=== PATIENT | male | born 1960 | race Caucasian/White ===

== ENCOUNTER 2016-10-03 06:04 | Inpatient (IN) | payer MEDICARE, MEDICAID ==
[2016-10-03] MEDS ORDERED: Codeine/guaiFENesin 100-10 MG/5 ML Syrup 5 ML Cup PO ONE (07:15)
[2016-10-03] MEDS ORDERED: Albuterol/Ipratropium 3.0-0.5 MG/3 ML Neb Soln NEB PRN (07:33)
[2016-10-03] MEDS ORDERED: Magnesium Hydroxide 400 MG/5 ML Susp 30 ML Cup PO PRN (07:33)
[2016-10-03] MEDS ORDERED: Sodium Chloride 0.9% 1,000 ML IV ONE (07:44)
[2016-10-03] MEDS ORDERED: Codeine/guaiFENesin 100-10 MG/5 ML Syrup 5 ML Cup PO PRN (07:50)
[2016-10-03] MEDS ORDERED: Acetaminophen Soln 650 MG/20.3 ML UD Cup PO PRN (07:58)
[2016-10-03] MEDS ORDERED: Sodium Chloride 0.9% 1,000 ML IV SCH ×2 (09:00→09:30)
--- NOTE | 2016-10-03 09:29 | PCM.HP ---
H&P History of Present Illness - General Date of Service: 10/03/16 Admit Problem/Dx: Admission Diagnosis/Problem Admission Diagnosis/Problem Cough History Limitations: Reports: No limitations - History of Present Illness Initial Comments - Free Text/Narative: This history is obtained from the patient and his . Mr. Arceo is 56 years old, he has a resting disease for several years, and chronic joint pain and fusion. He came in because of a cough that he's had for 3 weeks, dry but sometimes productive of blood tinged sputum. He denies any fever associated with it. Neither does he have shortness of breath. Because of the skin disease and joint disease, he is bedridden and has developed bed sores in the shoulder blades and buttock. This has been causing significant pain and discomfort. He is able to ambulate only with assistance but mostly lives in a wheelchair. His appetite has been decreasing slowly. His mostly helps him with dressing feeding and toileting as well. He denies any recent fever, chills or vomiting. Over the telephone he was started on Omnicef for possible cellulitis. Generalized Pain Score (Numeric/FACES): 5 - Related Data Allergies/Adverse Reactions: Allergies Allergy/AdvReac Type Severity Reaction Status Date / Time Penicillins Allergy Diarrhea Verified 10/03/16 06:23 Home Medications: Home Meds Acitretin 25 mg PO DAILY 10/03/16 [History] Cefdinir [Omnicef 250 MG/5 ML Susp] 1 tsp PO BID 10/03/16 [History] Clotrimazole/Betamethasone Dip [Lotrisone Cream] 45 gm TP BID PRN 10/03/16 [ History] Mupirocin Cream [Bactroban Crm] 30 gm TP BID PRN 10/03/16 [History] Valsartan/Hydrochlorothiazide [Valsartan-Hctz 160-12.5 mg Tab] 1 tab PO DAILY [History] Past Medical History HEENT History: Reports: Cataract, Impaired vision Gastrointestinal History: Reports: Hemorrhoids Musculoskeletal History: Reports: Other (see below) Other Musculoskeletal History: 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 - Infectious Disease History Infectious Disease History: Reports: Chicken pox - Past Surgical History Musculoskeletal Surgical History: Reports: Hip replacement, Other (see below) Other Musculoskeletal Surgeries/Procedures:: left Social & Family History - Family History Family Medical History: Noncontributory - Tobacco Use Smoking Status *Q: Never Smoker Years of Tobacco use: 8 Second Hand Smoke Exposure: No - Caffeine Use Caffeine Use: Reports: Tea - Recreational Drug Use Recreational Drug Use: No H&P Review of Systems - Review of Systems: Review Of Systems: ROS reveals no pertinent complaints other than HPI. Exam - Exam Exam: See Below - Vital Signs Vital Signs: Last Vital Signs Temp 97.8 F 10/03/16 07:50 Pulse 83 10/03/16 07:50 Resp 20 10/03/16 07:50 BP 162/88 H 10/03/16 07:50 Pulse Ox 94 L 10/03/16 07:50 Weight: 66.134 kg - Exam General: alert, oriented, 4 HEENT: PERRLA, Hearing intact, Mucosa moist & pink, Nares patent, Normal nasal septum, Posterior pharynx clear, Conjunctiva clear, EOMI, EACs clear, TMs clear Neck: supple, trachea midline, 2 Lungs: Clear to auscultation, Normal respiratory effort Cardiovascular: regular rate, regular rhythm Abdomen: normal bowel sounds, soft (Male) Exam: Circumcised, Rash Rectal (Males) Exam: Deferred Back Exam: decreased range of motion. No: full range of motion Extremities: No: clubbing, edema Skin: warm, rash, other (He has several areas of excoriation, peeling of skin particularly in the shoulder blades bilaterally, and these sacral area. The dermis is involved, and the measure about the palm size of the palm of my hand. In addition he has several crystals in his upper chest and trunk area and hyperkeratinization and scaly areas widespread probably to his chronic skin disease.) Neurological: cranial nerves intact, reflexes equal bilateral Neuro Extensive - Mental Status: alert, oriented x3, normal mood/affect, normal cognition Neuro Extensive - Motor, Sensory, Reflexes: CN II-XII intact, normal gait, normal reflexes Psychiatric: depressed. No: labile mood, suicidal ideation, hallucinations - Patient Data Lab Results last 24 hrs: Laboratory Results - last 24 hr 10/03/16 10/03/16 10/03/16 Range/Units 07:45 07:45 07:45 WBC 15.3 H (4.5-12.0) X10-3/uL RBC 2.73 L (4.30-5.75) x10(6)uL Hgb 8.6 L (11.5-15.5) g/dL Hct 25.5 L (30.0-51.3) % MCV 93.6 (80-96) fL MCH 31.5 (27.7-33.6) pg MCHC 33.7 (32.2-35.4) g/dL RDW 13.4 (11.5-15.5) % Plt Count 650 H (125-369) X10(3)uL MPV 7.6 (7.4-10.4) fL Add Manual Diff Yes Neutrophils % (Manual) 80 (46-82) % Band Neutrophils % 1 (0-6) % Lymphocytes % (Manual) 11 L (13-37) % Monocytes % (Manual) 6 (4-12) % Eosinophils % (Manual) 2 (0-5) % PT 12.2 H (8.7-11.1) INR 1.21 H (0.89-1.13) D-Dimer, Quantitative (100-400) ng/mL Sodium (135-145) mmol/L Potassium (3.5-5.3) mmol/L Chloride (100-110) mmol/L Carbon Dioxide (23-29) mmol/L BUN (5-20) mg/dL Creatinine (0.6-1.3) mg/dL Est Cr Clr Drug Dosing mL/min Estimated GFR (MDRD) (>60) BUN/Creatinine Ratio (9-20) Glucose (80-116) mg/dL Calcium (8.6-10.2) mg/dL Phosphorus (3.0-4.6) mg/dL Magnesium (1.8-2.5) mg/dL Total Bilirubin (0.1-1.3) mg/dL AST (5-27) IU/L ALT (14-26) IU/L Alkaline Phosphatase (56-112) IU/L Creatine Kinase (60-160) IU/L Troponin I (0.02-0.06) NG/ML C-Reactive Protein (0.0-1.0) mg/dL B-Natriuretic Peptide (0-100) pg/mL Total Protein (6.0-8.0) g/dL Albumin (3.5-5.2) g/dL Globulin g/dL Albumin/Globulin Ratio TSH, Ultra Sensitive 3.16 (0.4-5.5) nlU/mL 10/03/16 10/03/16 10/03/16 Range/Units 07:45 07:45 07:45 WBC (4.5-12.0) X10-3/uL RBC (4.30-5.75) x10(6)uL Hgb (11.5-15.5) g/dL Hct (30.0-51.3) % MCV (80-96) fL MCH (27.7-33.6) pg MCHC (32.2-35.4) g/dL RDW (11.5-15.5) % Plt Count (125-369) X10(3)uL MPV (7.4-10.4) fL Add Manual Diff Neutrophils % (Manual) (46-82) % Band Neutrophils % (0-6) % Lymphocytes % (Manual) (13-37) % Monocytes % (Manual) (4-12) % Eosinophils % (Manual) (0-5) % PT (8.7-11.1) INR (0.89-1.13) D-Dimer, Quantitative (100-400) ng/mL Sodium 133 L (135-145) mmol/L Potassium 3.6 (3.5-5.3) mmol/L Chloride 99 L (100-110) mmol/L Carbon Dioxide 22 L (23-29) mmol/L BUN 12 (5-20) mg/dL Creatinine 0.9 (0.6-1.3) mg/dL Est Cr Clr Drug Dosing 84.24 mL/min Estimated GFR (MDRD) > 60 (>60) BUN/Creatinine Ratio 13.3 (9-20) Glucose 115 (80-116) mg/dL Calcium 8.6 (8.6-10.2) mg/dL Phosphorus 3.9 (3.0-4.6) mg/dL Magnesium 1.9 (1.8-2.5) mg/dL Total Bilirubin 0.7 (0.1-1.3) mg/dL AST 25 (5-27) IU/L ALT 14 (14-26) IU/L Alkaline Phosphatase 68 (56-112) IU/L Creatine Kinase 105 (60-160) IU/L Troponin I (0.02-0.06) NG/ML C-Reactive Protein 12.4 H* (0.0-1.0) mg/dL B-Natriuretic Peptide (0-100) pg/mL Total Protein 7.7 (6.0-8.0) g/dL Albumin 2.9 L (3.5-5.2) g/dL Globulin 4.8 g/dL Albumin/Globulin Ratio 0.6 TSH, Ultra Sensitive (0.4-5.5) nlU/mL 10/03/16 10/03/16 10/03/16 Range/Units 07:45 07:45 07:45 WBC (4.5-12.0) X10-3/uL RBC (4.30-5.75) x10(6)uL Hgb (11.5-15.5) g/dL Hct (30.0-51.3) % MCV (80-96) fL MCH (27.7-33.6) pg MCHC (32.2-35.4) g/dL RDW (11.5-15.5) % Plt Count (125-369) X10(3)uL MPV (7.4-10.4) fL Add Manual Diff Neutrophils % (Manual) (46-82) % Band Neutrophils % (0-6) % Lymphocytes % (Manual) (13-37) % Monocytes % (Manual) (4-12) % Eosinophils % (Manual) (0-5) % PT (8.7-11.1) INR (0.89-1.13) D-Dimer, Quantitative > 5000 H (100-400) ng/mL Sodium (135-145) mmol/L Potassium (3.5-5.3) mmol/L Chloride (100-110) mmol/L Carbon Dioxide (23-29) mmol/L BUN (5-20) mg/dL Creatinine (0.6-1.3) mg/dL Est Cr Clr Drug Dosing mL/min Estimated GFR (MDRD) (>60) BUN/Creatinine Ratio (9-20) Glucose (80-116) mg/dL Calcium (8.6-10.2) mg/dL Phosphorus (3.0-4.6) mg/dL Magnesium (1.8-2.5) mg/dL Total Bilirubin (0.1-1.3) mg/dL AST (5-27) IU/L ALT (14-26) IU/L Alkaline Phosphatase (56-112) IU/L Creatine Kinase (60-160) IU/L Troponin I < 0.01 L (0.02-0.06) NG/ML C-Reactive Protein (0.0-1.0) mg/dL B-Natriuretic Peptide 61 (0-100) pg/mL Total Protein (6.0-8.0) g/dL Albumin (3.5-5.2) g/dL Globulin g/dL Albumin/Globulin Ratio TSH, Ultra Sensitive (0.4-5.5) nlU/mL Result Diagrams: 10/03/16 07:45 10/03/16 07:45 *Q Meaningful Use (ADM) - VTE *Q VTE Criteria *Q: - Stroke *Q Stroke Criteria *Q: - AMI *Q AMI Criteria *Q: - Problem List (1) Decubitus skin ulcer SNOMED Code(s): 504966270 ICD Code: L89.90 - PRESSURE ULCER OF UNSPECIFIED SITE, UNSPECIFIED STAGE Status: Acute Current Visit: Yes Qualifiers: Pressure ulcer location: sacral region Pressure ulcer stage: stage 2 Qualified Code(s): L89.152 - Pressure ulcer of sacral region, stage 2 (2) Hemoptysis SNOMED Code(s): 71168326 ICD Code: R04.2 - HEMOPTYSIS Status: Acute Current Visit: Yes (3) HTN (hypertension) SNOMED Code(s): 29955140 ICD Code: I10 - ESSENTIAL (PRIMARY) HYPERTENSION Status: Chronic Current Visit: Yes Qualifiers: Hypertension type: essential hypertension Qualified Code(s): I10 - Essential (primary) hypertension (4) Darier disease SNOMED Code(s): 554702372, 137761466 ICD Code: Q82.8 - OTHER SPECIFIED CONGENITAL MALFORMATIONS OF SKIN Status: Acute Current Visit: Yes (5) Physical deconditioning SNOMED Code(s): 38428868566533 ICD Code: R53.81 - OTHER MALAISE Status: Acute Current Visit: Yes Problem List Initiated/Reviewed/Updated: Yes Orders Last 24hrs: Active Orders 24 hr Category Date Time Status OT Evaluation and Treatment [CONS] Routine Cons 10/03/16 09:28 Ordered PT Evaluation and Treatment [CONS] Routine Cons 10/03/16 09:28 Ordered Chest 2V [CR] Routine Exams 10/03/16 08:16 Stop Req Chest w Cont [CT] Routine Exams 10/03/16 09:27 Ordered Acetaminophen [Tylenol] Med 10/03/16 07:58 Active 480 mg PO Q4H PRN Codeine/guaiFENesin [Robitussin AC] Med 10/03/16 07:50 Active 5 ml PO Q4H PRN Sodium Chloride 0.9% @ 125 MLS/HR (1000ml) Med 10/03/16 09:30 Ordered Sodium Chloride 0.9% [Normal Saline] 1,000 ml IV ASDIRECTED Sodium Chloride 0.9% [Normal Saline] 1,000 ml Med 10/03/16 09:00 Active IV ASDIRECTED cefTRIAXone [Rocephin] Med 10/03/16 09:30 Ordered 1,000 mg IVPUSH Q24H Medication Orders Acetaminophen (Tylenol) 480 mg PO Q4H PRN PRN Reason: Pain Albuterol/Ipratropium (Duoneb 3.0-0.5 Mg/3 Ml) 3 ml NEB QID PRN PRN Reason: Shortness Of Breath/wheezing Guaifenesin/Codeine Phosphate (Robitussin Ac) 5 ml PO Q4H PRN PRN Reason: Cough Sodium Chloride (Normal Saline) 1,000 mls @ 150 mls/hr IV ASDIRECTED KATIE Sodium Chloride (Normal Saline) 1,000 mls @ 125 mls/hr IV ASDIRECTED KATIE Magnesium Hydroxide (Milk Of Magnesia) 30 ml PO Q12H PRN PRN Reason: Constipation Assessment/Plan Comment:: We'll admit the patient. I will start Rocephin to cover for any skin infection from Darier's disease. In addition obtain a CT of the chest given his high d- dimer to rule out any PE as a cause for his hemoptysis. I have recommended frequent position changes, Aquacel for dressing of the pressure ulcers and obtain a physical therapy consultation.
[2016-10-03] MEDS ORDERED: cefTRIAXone 1,000 MG VIAL IVPUSH SCH (09:30)
[2016-10-03] MEDS ORDERED: cefTRIAXone 1 GM in Sodium Chloride 0.9% 50 ML IV SCH (10:15)
[2016-10-03] MEDS ORDERED: Iopamidol 755 Mg/ML 75 ML Bottle IV ONE (11:41)
[2016-10-03] MEDS ORDERED: Ondansetron 4 MG Tab.DIS PO PRN (17:09)
[2016-10-03] MEDS ORDERED: Morphine 2 MG/ML Syringe IVPUSH PRN (17:21)
[2016-10-03 17:22] VITALS: BP 137/85
[2016-10-03] MEDS ORDERED: Ketorolac 30 MG/ML SDV IVPUSH SCH (17:45)
--- NOTE | 2016-10-03 20:28 | PN ---
DATE SEEN: 10/03/2016 TIME: 1800 hours. CHIEF COMPLAINT: Hemoptysis. HISTORY OF PRESENT ILLNESS: This is a 56-year-old male, who was admitted early this morning for hemoptysis, cough, and a CT of the chest has been done showing large pleural effusion. He also complains of new onset right lower quadrant abdominal pain, nausea, and constipation. No fever or chills has been reported. PAST MEDICAL HISTORY: He has rare skin disease, Darier's. Hypertension and osteoarthritis of the major joints. REVIEW OF SYSTEMS: He denies any pain in the chest. PHYSICAL EXAMINATION: GENERAL: He is uncomfortable. VITAL SIGNS: His blood pressure is normal. His pulse is 73 and temp 98.0. ABDOMEN: Soft, mild distention was noted, and there is tenderness in the right lower quadrant. No rebound. It is rigid. LABORATORY DATA: No new labs except this morning. Hemoglobin was 8.6, white cell count 15.3, CRP was 12.4. CT revealed a large effusion on the right. FINAL IMPRESSION: 1. Pleural effusion, right side. 2. Anemia, microcytic, unknown reason. 3. Darier's disease. 4. Osteoarthritis. PLAN: I discussed this with Dr. Ashby because of his inability to sit or lie on the left side. He does not feel comfortable doing the thoracentesis, and the new onset abdominal pain is concerning for acute abdomen which needs further testing, but the patient is unable to sit still for a CAT scan. As such, it was felt that it is safer for him to be sent to a tertiary center and I called [facility] and we will transfer him to [facility]. /[id number] 2019 OSWALDO/MODL
--- NOTE | 2016-10-04 08:37 | CT ---
INDICATION: Hemoptysis, increased D-dimer at greater than 5,000. CT CHEST WITH CONTRAST/CT ANGIOGRAPHY: Spiral 1.25 mm axial sections were obtained through the chest with 59 mL Isovue 370 at 3.1 mL/second. Sagittal and coronal reconstructions were obtained. Examination is from 10/03/2016, and no comparisons were available. Total exam DLP = 833.14 mGy-cm. A massive right pleural effusion is noted with atelectasis of the right lower lobe, right middle lobe, and most of the right upper lobe. The left lung and pleural space appeared fairly normal in comparison with minimal fibrotic appearing changes at the left lung base lingula and left lower lobe. The pleural effusion on the right may be under tension, since midline structures appear to be shifted to the left, including the heart. The heart did not appear enlarged. Coronary artery disease is suggested. There appears to be somewhat increased density overall in the mediastinum with no focal mass lesion identified. The pleural effusion is extending across the midline. The upper abdomen visualized revealed a probable cyst with a low density lesion in the upper portion of the right lobe of the liver near the diaphragm on axial image #237, measuring approximately 2 cm in maximum diameter. Detail is somewhat limited due to hard beam artifact. No gallstone was demonstrated. The common bile duct appeared normal in caliber. The pancreas and spleen were unremarkable, as were the kidneys. No definite evidence of pulmonary embolus could be identified. IMPRESSION: 1. Massive right pleural effusion under tension with shift of midline structures to the left and collapse of most of the right lung with some aerated right upper lobe present. Etiology is indeterminate. Cannot exclude pneumonia in the collapsed segments. 2. Mild fibrosis left lung base. 3. Probable cyst right lobe of the liver. 4. Flowing hyperostotic changes in the spine, suggesting DISH. 5. No definite evidence of pulmonary emboli. Report was called to Dr. Rooney at 1513 hours on 10/03/2016. [facility]
--- NOTE | 2016-10-04 13:33 | DISCH ---
DISCHARGE DATE: 10/03/2016 Discharged on 10/03/2016 at 1800 hours. REASON FOR ADMISSION: 1. Hemoptysis. 2. Pressure ulcers. 3. Darier's disease. 4. Hypertension. DISCHARGE DIAGNOSES: 1. Pleural effusion, right-sided. 2. Anemia, microcytic, of unknown reason. 3. Darier's disease. 4. Osteoarthritis of major joints. 5. Abdominal pain of unknown reason. BRIEF HISTORY AND HOSPITAL COURSE: This is a 56-year-old male, who was admitted for hemoptysis, skin disorder, and pressure ulcers. Please see HPI for details on the history and physical this morning. After CT revealed pleural effusion, it was felt that he is safer in [place], where he can obtain conscious sedation for pleural effusion or, if there is any surgical intervention needed at this facility, it is available. As such, I will transfer him via ambulance to [facility] and Dr. Rueda was gracious to accept the transfer. I spent 35 minutes or more in the discharge and transfer. /[id number] 190 OSWALDO/RAJNI
--- NOTE | 2016-10-10 09:40 | ER ---
DATE SEEN: 10/03/2016 TIME SEEN: The patient was seen at 0630 hours. CHIEF COMPLAINT: This 56-year-old man presents with a chief complaint of having been ill for a month and coughing up blood for the last 2 days, after having antibiotics for 5 days for skin infections, and shortness of breath. HISTORY OF PRESENT ILLNESS: The patient has known Darier's disease, which was researched by [facility], and he would fly back and forth between his community where he lived in [place] and [facility] for several years frequently. Apparently, used DNA specimens to create other DNA therapies. He has had open sores on his sacrum since 1997. He has had Darier's disease since 1997. He has had low blood pressure since 09/20/2016. Antibiotics started for 5 days for cough. He cannot swallow pills but is able to manage this antibiotic. He has not felt well for a month. He has had coughing with blood for the last 2 weeks intermittently. He has had slight increase in phlegm. No associated fever or increase in shortness of breath. He has had shortness of breath that occurs when he sits up. 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 The back fusion occurred spontaneously because of his Darier's disease. There was no surgical intervention. This also resulted in fusion of the right shoulder and the left shoulder. There is no surgical intervention in this particular case. Apparently, he is able to go up and down the stairs and walk sideways. He has chest pain that increases with walking up and down stairs. Mild midepigastric abdominal discomfort. No recent ulcers. He has been coughing more over the last 3 days. The surgical incisions had resulted in large keloids/thickened scars. He has a left total hip arthroplasty. Has 1 brother who had suicide at 26 years of age. Mother at 81 and has one daughter living, and he is not sure about his father. ALLERGIES: Penicillins. On 10/01/2016, he had his last bowel movement. His p.o. intake had been decreased. He had soup on that day and only had 5 spoonfuls of soup. Prior to that, his anorexia has increased and his fluid intake has decreased. His urine is more concentrated, only passed urine twice yesterday. He chokes easily on eating solid foods. He has to work very carefully, and he only takes 1 pill; otherwise, rest of the medications taken by liquid. He does fairly well swallowing liquids. MEDICATIONS: 1. Bactroban p.r.n. 2. Clotrimazole/betamethasone cream. 3. Acitretin, a generic Retin-A preparation. 4. Valsartan/hydrochlorothiazide 160/12.5. 5. Cefdinir started 5 days ago a teaspoon b.i.d. He has a large decubitus ulcer, which has been increasing up for the past month. He is unable to get up and move around, except for a few times a day to go to the bathroom, etc. He does not lie and sleep in bed, and he has a special chair that he stays in all the time and gets off this chair infrequently. REVIEW OF SYSTEMS: HEENT: Denies compromised vision and hearing. CHEST: Denies chest pain. HEART: He has mild shortness of breath. Denies irregular heartbeat or palpitations. GI: No gastrointestinal complaints. Diarrhea, some intermittently variably soft stools, and some occasional constipation. : Has incontinence of urine, wears Attends. MUSCULOSKELETAL: Marked decreased muscle strength of and lower extremities. Denies focused specific joint pain, but has generalized joint pains, including spontaneous fusion in his entire back because of Darier's disease. NEUROLOGIC: No history of stroke or TIA. He has increasing weakness because he is unable to get up and move around, secondary to deconditioning. PHYSICAL EXAMINATION: VITAL SIGNS: Blood pressure 162/88, respirations 20, oxygen saturation 94% on room air, 83 pulse and regular, temperature 36.6 degrees. GENERAL: The patient has striking thickened velvet crusted dry skin. He has a baseball cap on his head. There is no hair, but gentle touch precipitates extensive itching. He has papular nonerythematous dried hair follicles noted. Alopecia is marked and generalized. Hearing is slightly decreased. His skin almost has a velvet appearance, he is unshaven. HEENT: Pharynx: He has difficulty to open his jaw. Dry mucosa noted. NECK: No bruits. No masses. No thyromegaly. No cervical adenopathy. Neck is not supple, it is fused, moves minimally. He has semi-flexed posture. LUNGS: Scattered rales. HEART: S1, S2. No irregular rate and rhythm. There are no wheezes or rhonchi in the lungs. ABDOMEN: Soft. No guarding. He has mild discomfort. His back is fused and is painful for him to move in any position. Consequently when he is rolled, he has an extensive 20 cm size decubitus ulcer in sacrum with a large fissure, mild erythema. Moderate dry crusting noted. GENITALIA: Negative. LOWER EXTREMITIES: Muscle wasting noted. Deep tendon reflexes hypoactive, absent in lower extremities. Limited range of motion of lower extremities and upper extremities; he has a marked 50% decreased motion of right upper extremity. He has more right upper extremity motion than left. Left significantly more contraction and pronator defect. He is oriented x3 and appropriate in conversation. His is most helpful. She has been the primary caregiver for the last 11 years, 06/02. LABORATORY STUDIES: White count 15,300, PMNs 88, lymphs 11, bandemia of 1, 6 monocytes, 2 eosinophils, hemoglobin was 8.6. PT of 12.2, INR 1.2. D-dimer 5,000. Sodium 133, potassium 3.6, chloride 99, CO2 of 22. The remainder of the automated chemistry is normal, except for a C-reactive protein of 12.4 and troponin less than 0.1. TSH is 3.16. Chest x-ray has not been obtained. Dr. Rooney has ordered PE scan because of elevated D-dimer, rule out PE. ASSESSMENT: In all likelihood, his D-dimer is elevated because of his continued stasis. He does not get out of bed. He lies in his special chair almost 06/02, except he gets up occasionally during the daytime. DIAGNOSES: 1. 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 2. Chronically bedridden or limited in his activity by this fusion. Has a stooped gait. 3. Fusion of his left and right shoulders. At one time, Anesthesia attempted to lyse the left shoulder, which resulted in marked pain but did not resolve the pain. Again, had subsequent fusion with marked decreased range of motion of upper extremities and lower extremities. 4. His gait is shuffled because of this fusion and Darier's disease. 5. Shortness of breath secondary to chronic obstructive lung disease, possible pulmonary embolus. 6. Leukocytosis with bandemia. 7. Anemia of 8.66. Thrombocythemia of 650,000. 8. Slight elevation of INR and PT. 9. There is marked elevated C-reactive protein, probably secondary to Darier's disease. No evidence for myocardial ischemia. Low albumin, poor absorption and also decreased p.o. intake. Anorexia because of the Darier's disease. He also has an [id number] Retin-A formulation that he uses, but he has extensive velvet change like dermis changes because of his Darier's. The skin is extremely dry and also itchy when touched minimally. PLAN: The patient admitted for further care and treatment of extensive large sacral ulcer. Status discussed with Dr. Rooney. /[id number] JUANA/RAJNI EAST
== END 2016-10-03 18:55 | DRG 187 ==
LOC: FB.ED 06:04 → FB.MS 07:40
PROVIDERS: ADMIT Family Medicine; ATTEND Family Medicine
DX: J90 Pleural effusion, not elsewhere classified (principal); R04.2 Hemoptysis; Z98.1 Arthrodesis status; J44.9 Chronic obstructive pulmonary disease, unspecified; D72.825 Bandemia; D64.9 Anemia, unspecified; Q82.8 Other specified congenital malformations of skin; M19.90 Unspecified osteoarthritis, unspecified site; I10 Essential (primary) hypertension; R10.9 Unspecified abdominal pain; Z74.01 Bed confinement status; L89.152 Pressure ulcer of sacral region, stage 2; R53.81 Other malaise
CPT/HCPCS: 36415; 99285; A9270; 71275; 80053; 81001; 82550; 83735; 83880; 84100; 84443; 84484; 85025; 85379; 85610; 86140; J0696; J1885; J7040; J7050; Q9967

== ENCOUNTER 2016-11-20 21:15 | Emergency (ER) | payer MEDICARE, MEDICAID ==
[2016-11-20] MEDS ORDERED: Sodium Chloride 0.9% 10 ML Syringe FLUSH PRN (21:42)
[2016-11-20] MEDS ORDERED: Morphine 2 MG/ML Syringe IM PRN (21:57)
[2016-11-20 22:15] VITALS: BP 49/29
--- NOTE | 2016-11-21 01:49 | ER ---
DATE SEEN: 11/20/2016 ADDENDUM: ED COURSE: Patient's condition deteriorated with decreasing blood pressure and heart rate and the transfer to the floor was put on hold. The client director was called to the patient's bedside with the family. At 2230 hours, he was noted to have no respiratory effort, blood pressure, or heart rate. I was called to certify him and I found no respiratory effort, pupils were fixed and nonreactive to light and I pronounced him at 2232 hours. November God rest his soul in eternal peace. /[id number] OSWALDO/RAJNI
--- NOTE | 2016-11-21 01:57 | ER ---
DATE SEEN: 11/20/2016 CHIEF COMPLAINT: Failure to thrive. HISTORY OF PRESENT ILLNESS: This is a 56-year-old male brought in by the . Over the last 2 days, he is doing poorly. He has had a chronic pleural effusion. 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 Over the last couple of days, the has been unable to obtain a blood pressure, he has been more unresponsive and he has not been able to eat or drink. He has been tucked to a chair and when she tried to move him, she was unable to and called the ambulance. He was just recently discharged from [facility]. PAST MEDICAL HISTORY: Osteoarthritis of the joints, chronic pleural effusion, anemia, and hypertension. REVIEW OF SYSTEMS: No report of any fever. ALLERGIES: Penicillins. PHYSICAL EXAMINATION: VITAL SIGNS: Pulse is 92, temp 94.6, blood pressure 120/88. GENERAL: He is cachectic, unresponsive, and having agonal breathing. EARS NOSE AND THROAT: Revealed dry mucous membranes. Sunken eyelids. RESPIRATORY SYSTEM: Cholo-Grossman breathing. CARDIOVASCULAR: Normal S1, S2. MENTAL STATUS: Unresponsive. IMPRESSION: 1. Failure to thrive. 2. End of life care. PLAN: The patient is a DNR according to the and we initially wanted to obtain a chest x-ray, some blood work, but given the patient's status and condition, the , after discussion, agreed to have him admitted for comfort measures and hospice care for end of life management. /[id number]
== END 2016-11-21 00:23 | disposition expired ==
LOC: FB.ED 21:15 → UNDOADMOB 21:57 → FB.MS 21:57 → FB.ED 11-21 00:23
DX: R62.7 Adult failure to thrive (principal); M19.90 Unspecified osteoarthritis, unspecified site; D46.9 Myelodysplastic syndrome, unspecified; I10 Essential (primary) hypertension; Z88.0 Allergy status to penicillin
CPT/HCPCS: 99282; 99284